=== PATIENT | male | born 1955 | race African-American/Black ===

== ENCOUNTER 2018-12-23 13:43 | Emergency (ER) | payer MEDICAID, OTHER ==
[~2018-12-23] VITALS: Ht 180.3 cm; Wt 109.1 kg
[~2018-12-23 13:43] MED LIST: ALLO100T PO; GABA600T10 PO; HYDR25TA PO; LISI20TA PO; METF-960 PO; METO100T3 PO; OMEP20TA25 PO; SIMV20TA6 PO; TRAM50TA4 PO
[2018-12-23] MEDS ORDERED: VIT B12 PO (13:54)
[2018-12-23] MEDS ORDERED: TAMS-1 PO (13:54)
[2018-12-23] MEDS ORDERED: DONE10TA8 PO (13:54)
[2018-12-23] MEDS ORDERED: FERR-89 PO (13:54)
[2018-12-23] MEDS ORDERED: LIDOCAINE 5% TRANSDERMAL PATCH TD ONE (16:00)
[2018-12-23] MEDS ORDERED: KETOROLAC TROMETHAMINE 60 MG/2 ML VIAL IM ONE (16:00)
[2018-12-23 16:25] LABS: BASOPHILS % (AUTO) 0.6 % (0.0-2.0); EOSINOPHILS % (AUTO) 4.6 % (1.0-6.0); HEMATOCRIT 36.6 % (41-53); HEMOGLOBIN 12.3 g/dL (13.5-17.5); LYMPHOCYTES # (AUTO) 2.8 K/uL (1.0-4.8); LYMPHOCYTES % (AUTO) 35.5 % (22.0-44.0); MEAN CORPUSCULAR HEMOGLOBIN 29.5 pg (26.0-34.0); MEAN CORPUSCULAR HGB CONC 33.6 G/dL (31.0-37.0); MEAN CORPUSCULAR VOLUME 88 fL (80-100); MONOCYTES # (AUTO) 0.6 K/uL (0.1-1.0); NEUTROPHILS # (AUTO) 4.1 K/uL (1.8-7.7); NEUTROPHILS % (AUTO) 52.3 % (40.0-70.0); PLATELET COUNT (AUTO) 209 K/uL (150-450); RED BLOOD CELL COUNT(AUTO) 4.17 MIL/uL (4.50-5.90); RED CELL DISTRIBUTION WIDTH 14.5 % (11.5-14.5)
[2018-12-23 17:55] LABS: CALCIUM, TOTAL 8.9 mg/dL (8.8-10.5); CREATININE 1.52 mg/dL (0.60-1.30)
[2018-12-23 18:01] LABS: ALBUMIN 3.3 g/dL (3.4-5.0); BILIRUBIN,TOTAL 0.2 mg/dL (0.1-1.0); TOTAL PROTEIN, SERUM 7.1 g/dL (6.4-8.2)
[2018-12-23 18:15] VITALS: BP 131/67
== END 2018-12-23 18:46 | disposition home or self-care (01) ==
LOC: EMS 13:44
DX: K12.0 Recurrent oral aphthae (principal); M54.2 Cervicalgia; M54.5 Low back pain; E11.9 Type 2 diabetes mellitus without complications; E78.00 Pure hypercholesterolemia, unspecified; G89.29 Other chronic pain; F17.210 Nicotine dependence, cigarettes, uncomplicated; Z98.890 Other specified postprocedural states; Z79.899 Other long term (current) drug therapy
CPT/HCPCS: 36415; 80053; 85025; 96372; 99283; J1885